=== PATIENT | male | born 1995 | race African-American/Black ===

== ENCOUNTER 2019-09-18 23:06 | Emergency (ER) | payer OTHER, SELFPAY ==
[2019-09-18 23:16] VITALS: BP 147/79; PULSE 82; RESP 17; TEMP 36.5; O2SAT 100; BMI 36.9
--- NOTE | 2019-09-18 23:19 | ED.CHESTPAIN ---
HPI - Chest Pain General Chief Complaint: Chest Pain Stated Complaint: sharp pain in chest and right arm Time Seen by Provider: 09/18/19 23:19 Source: patient Mode of arrival: Ambulatory Limitations: no limitations History of Present Illness HPI narrative: The patient is lying in bed about 4:00 p.m., he developed sudden stabbing pain to the right anterior chest. He took ibuprofen, pain is ongoing. Pain extends to the right shoulder. He has pain with motion of the right shoulder. But he has no left-sided chest pain. He denies dyspnea. Denies recent illness. He has had no URI symptoms, fever, or cough. He has no exposure to COVID. He is in the [place], he has not been at work lately. He is a nonsmoker. He denies any lifting, working out or obvious injuries. His no leg swelling. He has no history of clotting, or hemoptysis. He has no GI symptoms. He has no additional complaints. Related Data Home Medications Medication Instructions Recorded Confirmed acetaminophen 650 mg PO Q4HP PRN #0 09/13/17 docusate sodium 250 mg PO BID PRN #0 09/19/17 ibuprofen 800 mg PO TID #0 09/19/17 ondansetron HCl 4 mg PO TID PRN #0 09/19/17 Previous Rx's Medication Instructions Recorded oxycodone [Roxicodone] 5 mg PO Q4HP PRN #18 tab 09/19/17 ibuprofen 600 mg PO Q6H PRN #40 tab 09/19/19 methocarbamol 750 mg PO Q6H PRN #40 tab 09/19/19 Allergies Allergy/AdvReac Type Severity Reaction Status Date / Time No Known Allergies Allergy Uncoded 09/18/19 23:21 Review of Systems Review of Systems ROS Unobtainable: All systems reviewed & are unremarkable except as noted in HPI and below Constitutional Constitutional: Denies chills, Denies fever(s) and Denies lethargy Eyes Eyes: Reports system reviewed and no additional complaints, except as docu ENT Ears, Nose, Mouth, and Throat: Reports system reviewed and no additional complaints, except as docu and Denies dizziness Cardiovascular Cardiovascular: Reports as per HPI, Reports chest pain at rest, Denies syncope, Denies irregular heart rhythm, Denies leg edema and Denies dyspnea Respiratory Respiratory: Denies cough and Denies dyspnea Gastrointestinal Gastrointestinal: Denies abdominal pain, Denies nausea and Denies vomiting Musculoskeletal Musculoskeletal: Denies back pain, Denies muscle weakness and Denies tingling Integumentary/Breasts Skin/Breast: Denies erythema, Denies rash and Denies wounds Neurologic Neurologic: Denies confusion, Denies dizziness, Denies syncope and Denies tingling Psychiatric Psychiatric: Denies anxiety and Denies confusion Patient History Social History Smoking Status: Never smoker Smoking Status: Never smoker Substance Use Type: does not use Exam Initial Vital Signs Initial Vital Signs: Vital Signs Temperature 97.7 F 09/18/19 23:16 Pulse Rate 82 09/18/19 23:16 Respiratory Rate 17 09/18/19 23:16 Blood Pressure 147/79 H 09/18/19 23:16 Pulse Oximetry 100 09/18/19 23:16 Const General: cooperative, well developed and anxious Nutritional Appearance: well nourished HENMT Head: normocephalic and atraumatic Mouth: oral mucosae normal and moist mucous membranes Throat: tonsils normal Eyes General: appearance normal, both eyes and all related structures Eyelids: eyelids normal Conjunctivae: conjunctivae normal Sclera: sclerae normal Pupils: PERRL EOM: EOM intact bilaterally Neck Neck: normal visual inspection, trachea midline, No lymphadenopathy and No JVD Thyroid: thyroid normal Lymphatic: No lymphedema Chest Other: Palpable tenderness along the right sternal border, throughout the right pectoralis major muscle, extending to the right shoulder. He has pain with motion in the right shoulder. Resp Effort & Inspection: normal respiratory effort and able to speak in complete sentences Auscultation: clear to auscultation bilaterally, no rales, no rhonchi and no wheezes Cardio Rate: regular rate Rhythm: regular rhythm Heart Sounds: no click, no gallops, no murmurs and no rubs Pulses: normal peripheral pulses GI Inspection: non-distended and obesity Palpation: soft, no hepatosplenomegaly, No guarding and No tender Auscultation: normal bowel sounds Back/Spine/Pelvis Back: No CVA tenderness Skin General: no rashes or lesions noted Neuro General: alert, oriented x3, gait normal and no focal motor deficits Speech: speech normal Extrem General: normal to inspection, no pedal edema and no calf tenderness Course Course Course Narrative: The patient has obtained some relief with Tylenol, and then Valium for spasm. He is not totally asymptomatic. Chest x-ray, EKG, and lab data are significant only for subtle elevation to the glucose level. He will be discharged on ibuprofen and Robaxin. He is advised to follow up to re-evaluate his glucose level by his primary care doctor. Orders Ordered: ED Orders 09/18/19 23:31 XR chest 1V Stat 09/18/19 23:53 Basic Metabolic Panel Stat Complete Blood Count AUTO DIFF Stat D Dimer Stat Troponin & CK Cardiac Panel Stat Discontinued Medications Acetaminophen (Tylenol) 650 mg PO NOW ONE Stop: 09/18/19 23:32 Last Admin: 09/18/19 23:38 Dose: 650 mg Documented by: JOE Diazepam (Valium) 5 mg PO NOW ONE Stop: 09/19/19 00:44 Last Admin: 09/19/19 00:48 Dose: 5 mg Documented by: JAISON Vital Signs Vital signs: Vital Signs - 8 hr 09/18/19 23:16 Temperature 97.7 F Pulse Rate 82 Respiratory Rate 17 Blood Pressure 147/79 H Pulse Oximetry 100 MDM - Chest Pain Lab Data Result diagrams: 09/18/19 23:53 09/18/19 23:53 Labs: Lab Results 09/18/19 09/18/19 09/18/19 Range/Units 23:53 23:53 23:53 WBC 11.4 H (4.5-11.0) X10^3/uL RBC 4.96 (4.5-5.9) X10^6/uL Hgb 15.0 (13.5-17.5) g/dL Hct 46.0 (41-53) % MCV 92.8 (80-100) fL MCH 30.2 (26-34) PG MCHC 32.6 (30-36) % RDW 13.1 (11.6-14.8) % Plt Count 241 (150-400) X10^3/uL Neut % (Auto) 65.3 (50-75) % Lymph % (Auto) 25.1 (25-40) % [place] % (Auto) 7.5 (3-14) % Eos % (Auto) 1.3 L (2-4) % Baso % (Auto) 0.8 (0-2) % Neut # (Auto) 7500 H (0191-6032) /uL Lymph # (Auto) 2900 (2062-0554) /uL [place] # (Auto) 900 (0-900) /uL Eos # (Auto) 100 (0-450) /uL Baso # (Auto) 100 (0-100) /uL D-Dimer < 200 (<230) ng/mL Sodium 138 (137-145) mmol/L Potassium 4.2 (3.4-5.1) mmol/L Chloride 102 (98-107) mmol/L Carbon Dioxide 29 (22-32) mmol/L BUN 16 (9-20) mg/dL Creatinine 1.02 (0.66-1.25) mg/dL Estimated GFR > 60.0 (>60) mL/min BUN/Creatinine Ratio 15.7 (6-22) Glucose 136 H (70-100) mg/dL Calcium 9.6 (8.4-10.2) mg/dL Total Creatine Kinase 97 (55-170) U/L CK-MB (CK-2) TNP CK-MB (CK-2) Rel Index TNP Troponin I < 0.012 (0.01-0.034) ng/mL Imaging Data Chest x-ray: My Impression: Normal ECG Data Attestation: I personally reviewed and interpreted this ECG as follows: (Normal sinus rhythm rate 65 beats per minute. Normal intervals. Nonspecific ST T wave changes. Otherwise normal study.) Discharge Plan Departure Patient Disposition: Home Clinical Impression: Acute chest wall pain Instructions: DI for Muscle Strain Activity Restrictions/Additional Instructions: Motrin 600 mg every 6 hours as needed for pain. Robaxin every 6 hours as needed for muscle spasm. You may take the medications at the same time. Recheck with your doctor in 1 week if the pain is not improved. Follow-up with your doctor to recheck her glucose level. Return to the ER if you experience significant increasing chest discomfort. Prescriptions: New ibuprofen 600 mg tablet 600 mg PO Q6H PRN (Reason: pain) Qty: 40 RF: 0 methocarbamol 750 mg tablet 750 mg PO Q6H PRN (Reason: spasm) Qty: 40 RF: 0 No Action acetaminophen 325 MG tablet 650 mg PO Q4HP PRNQty: 0 RF: 0 ibuprofen 800 MG tablet 800 mg PO TID Qty: 0 RF: 0 ondansetron HCl 4 MG tablet 4 mg PO TID PRNQty: 0 RF: 0 docusate sodium 250 MG capsule 250 mg PO BID PRNQty: 0 RF: 0 oxycodone [Roxicodone] 5 MG tablet 5 mg PO Q4HP PRNQty: 18 RF: 0
--- NOTE | 2019-09-18 23:31 | DI.RAD.S_ITS ---
PROCEDURE: XR CHEST 1V INDICATIONS: chest pain TECHNIQUE: One view of the chest was acquired. COMPARISON: None. FINDINGS: Surgical changes and devices: None. Lungs and pleura: Lungs are clear. No pleural effusions or pneumothorax. Mediastinum: Mediastinal contours appear normal. Heart size is normal. Bones and chest wall: No suspicious bony lesions. Overlying soft tissues appear unremarkable. IMPRESSION: Normal for age, source of current chest pain symptoms is not seen. Dictated by: Cy Haynes M.D. on 09/19/2019 at 8:12 Approved by: Cy Haynes M.D. on 09/19/2019 at 8:12
[2019-09-18] MEDS: ACETAMINOPHEN 325 MG TABLET 650 MG PO (23:38)
[2019-09-19 00:03] LABS: Add Manual Diff / Slide Review NO; Basophils Absolute Auto 100 /uL (0-100); Basophils Percent Auto 0.8 % (0-2); Eosinophils Absolute Auto 100 /uL (0-450); Eosinophils Percent Auto 1.3 % (2-4); Lymphocytes Absolute Auto 2900 /uL (1100-4500); Lymphocytes Percent Auto 25.1 % (25-40); Mean Corpuscular HGB Conc 32.6 % (30-36); Mean Corpuscular Hemoglobin 30.2 PG (26-34); Mean Corpuscular Volume 92.8 fL (80-100); Monocytes Absolute Auto 900 /uL (0-900); Monocytes Percent Auto 7.5 % (3-14); Neutrophils Absolute Auto 7500 /uL (1500-7000); Neutrophils Percent Auto 65.3 % (50-75); Platelet Count 241 X10^3/uL (150-400); Red Blood Cell Count 4.96 X10^6/uL (4.5-5.9); Red Cell Distribution Width 13.1 % (11.6-14.8); White Blood Cell Count 11.4 X10^3/uL (4.5-11.0)
[2019-09-19 00:13] LABS: D Dimer < 200 ng/mL (<230)
[2019-09-19 00:14] LABS: BUN Creatinine Ratio 15.7 (6-22); Blood Urea Nitrogen 16 mg/dL (9-20); Calcium 9.6 mg/dL (8.4-10.2); Carbon Dioxide 29 mmol/L (22-32); Chloride 102 mmol/L (98-107); Creatine Kinase 97 U/L (55-170); Estimated Glomerular Filt Rate > 60.0 mL/min (>60); Glucose 136 mg/dL (70-100); HEMOLYSIS 15 (0-50); Potassium 4.2 mmol/L (3.4-5.1); Sodium 138 mmol/L (137-145)
[2019-09-19 00:25] LABS: Troponin I < 0.012 ng/mL (0.01-0.034)
--- NOTE | 2019-09-19 00:41 | PC.NURSE ---
patient reports pain has not improved in severity. Reports increase in frequency.
[2019-09-19] MEDS: diazePAM 5 MG TABLET PO (00:48)
--- NOTE | 2019-09-19 00:49 | PC.NURSE ---
Patient stated he has a ride or can walk home. Provider notified, Valium ordered.
[2019-09-19 01:39] VITALS: BP 118/82; PULSE 72; RESP 14; O2SAT 99
== END 2019-09-19 01:40 | disposition home or self-care (01) ==
PROVIDERS: Emergency Provider Emergency Medicine; Family Provider Anesthesiology Pain Medicine
DX: R07.89 Other chest pain (principal)
CPT/HCPCS: 36415; 71045; 80048; 82550; 82553; 84484; 85025; 85379; 93005; 99283; 99284